=== PATIENT | female | born 1970 | race Caucasian/White ===

== ENCOUNTER 2016-10-25 17:07 | Inpatient (IN) ==
[2016-10-25] MEDS ORDERED: ZOFRAN IV ONE (17:29)
[2016-10-25] MEDS ORDERED: ATIVAN IV ONE (17:29)
[2016-10-25] MEDS ORDERED: DILAUDID IV ONE (17:29)
[2016-10-25 17:54] LABS: INR 1.07; PROTIME 11.3 Seconds (9.2-11.7)
[2016-10-25 18:01] LABS: BASO% 0.4 % (0.0-0.8); EOS# 0.04 X1000 (0.0-0.7); EOS% 0.2 % (0.0-10.0); HEMATOCRIT 27.2 % (37.0-47.0); HEMOGLOBIN 9.1 g/dL (12.0-16.0); IMM GRAN# 2.26 X1000 (0.0-0.04); IMM GRAN% 10.7 % (0.0-0.5); LYMPH# 0.62 X1000 (1.2-3.4); LYMPH% 2.9 % (20.5-51.1); MANUAL DIFF NEEDED? NO; MCH 31.5 PG (27-31); MCHC 33.5 g/dL (33-37); MCV 94.1 FL (81-99); MONO# 1.27 X1000 (0.11-0.59); MPV 10.2 FL (7.4-10.4); NEUT% 79.8 % (42.2-75.2); PLT 112 X1000 (130-400); PTT 40.5 Seconds (22.0-36.0); RBC 2.89 XMIL (4.2-5.4)
[2016-10-25 18:36] LABS: CK INDEX 2.5 (0.0-2.5); CK-MB 14.14 ng/mL (0.0-5.0)
--- NOTE | 2016-10-25 18:37 | Diag Imaging Result Doc PS360 ---
CHEST-2 VIEWS - 10/25/2016 INDICATION: SOB TECHNIQUE: COMPARISON: None FINDINGS: There may be a right sided aortic arch. Heart size and pulmonary vascularity is normal. No focal infiltrates, pneumothorax, or pleural effusion. IMPRESSION: No acute disease. Electronically signed by John Andrade 10/25/2016 6:34 PM
[2016-10-25 18:45] LABS: ALBUMIN 2.9 g/dL (3.5-5.0); CALCIUM 7.3 mg/dL (8.8-10.2); POTASSIUM 5.3 mmol/L (3.5-5.1); TOTAL BILIRUBIN 0.21 mg/dL (0.20-1.00); TOTAL PROTEIN 5.9 g/dL (6.3-8.3)
[2016-10-25] MEDS ORDERED: NS 1,000 ML IV ONE ×2 (18:50→19:11)
[2016-10-25 19:00] LABS: ALLEN TEST YES; BE -25.2 mmoll (-3.0-3.0); BLOOD TYPE ARTERIAL; DRAW SITE R BRACHIAL; METHB 1.2 % (0.0-1.5); O2(CT) 12.7 mL/dL (15.0-23.0); PO2(98.6) 102 mmHg (60-100); SAMPLE BLOOD; SAO2 97.1 % (95.0-100.0); THB 9.4 g/dL (11.5-17.4)
[2016-10-25 19:03] LABS: pH(98.6) 7.01 (7.35-7.45)
[2016-10-25 19:04] LABS: PCO2(98.6) 16 mmHg (35-45)
[2016-10-25] MEDS ORDERED: ZOSYN 3.375 GM/NS 3.375 GM/50 ML IVPB IV ONE (19:10)
[2016-10-25] MEDS ORDERED: VANCOMYCIN 1 GM/NS 1 GM/250 ML IVPB IV ONE (19:10)
--- NOTE | 2016-10-25 19:24 | PROVIDER DOCUMENTATION ---
This chart was entered by Dave Carvajal Scribe, acting as scribe for Genaro Basilio PA. HPI-General Adult - General Chief Complaint: Weakness Stated Complaint: SOB/WEAKNESS Time Seen by Provider: 10/25/16 17:10 Source: patient Allergies/Adverse Reactions: Patient Allergies Allergy/AdvReac Type Severity Reaction Status Date / Time No Known Allergies Allergy Verified 10/25/16 17:30 Home Medications: Home Medication List Medication Instructions Recorded Confirmed Last Taken Type Unobtainable [Home Meds 10/25/16 10/25/16 Unknown History Unobtainable] - History of Present Illness -Gen Adult Nature of Presenting Problems: patient is a 46 y/o F that presents to the ER with back pain that made her short of breath. Symptoms been going on x 2 days. patient reports having colo- rectal cancer with last chemo on tuesday. Denies cough, fever/chills, n/v/d, or chest pain. History of back pain as well Location of Pain/Injury: reports: back Pain Radiation: reports: no radiation Quality of Pain: reports: aching, dull, throbbing Severity: reports: moderate Onset/Duration: reports: gradual, 2 days ago Timing: reports: still present, constant Context/Activities at Onset: reports: none Modifying Factors: worse with: movement Associated Symptoms: reports: anxiety, back/neck pain, shortness of breath. denies: cough, fever/chills, genitourinary problems, loss of appetite, malaise, muscle aches, nausea, vomiting Similar Symptoms Previously?: Yes Recently seen or treated by another doctor?: No Review of Systems - Adult - REVIEW OF SYSTEMS - ADULT Constitutional: denies: chills, fever Eyes: reports: no symptoms reported Ears, Nose, Mouth & Throat: reports: no symptoms reported Cardiovascular: denies: chest pain, orthopnea, palpitations Respiratory: reports: shortness of breath. denies: cough, pleurisy, wheezing Gastrointestinal: denies: abdominal pain, diarrhea, nausea, vomiting Genitourinary: reports: no symptoms reported Musculoskeletal: reports: back pain. denies: joint pain, neck pain Integumentary: reports: no symptoms reported Neurological: reports: no symptoms reported Psychiatric: reports: no symptoms reported Endocrine: reports: no symptoms reported Hematologic/Lymphatic: reports: no symptoms reported Allergic/Immunologic: reports: no symptoms reported All Other Systems: Reviewed and Negative Past History - Adult - PAST MEDICAL HISTORY-ADULT Review of Records: reports: Old Records Reviewed, Nursing Assessment Review, Medications Reviewed Cardiovascular: reports: HTN Gastrointestinal: reports: cancer (rectal) Musculoskeletal: reports: chronic pain (back) Endocrine/Immune: reports: Diabetes - PRIOR SURGERIES/PROCEDURES Surgical/Procedure History: reports: appendectomy, cholecystectomy, hysterectomy , - IMMUNIZATION STATUS Childhood Immunizations: See Nurse Assessment Flu Vaccine: See Nurse Assessment - FAMILY HISTORY Family History: reviewed, not pertinent - SOCIAL HISTORY Smoking: cigarettes, less than 1 pack/day Living Situation: family Physical Exam-General - PHYSICAL EXAM-ADULT Initial Vital Signs Reviewed: Yes - CONSTITUTIONAL General Appearance: alert, mild distress, moderate distress, anxious - EYES Eyes: PERRL/EOMI, pink conjunctivae - HEAD, EARS, NOSE, MOUTH & THROAT HENMT: normocephalic/atraumatic, moist mucous membranes, normal ENT inspection - NECK Neck: full range of motion, normal inspection - RESPIRATORY Respiratory: lungs clear, no respiratory distress, no accessory muscle use, increased rate - CARDIOVASCULAR Cardiovascular: no gallop, no murmur, tachycardia - GASTROINTESTINAL (ABDOMEN) Abdominal Exam: normal bowel sounds, non tender, soft, no organomegaly, no pulsatile mass - MUSCULOSKELETAL Back Exam: no CVA tenderness, no vertebral tenderness Extremity: normal range of motion, normal inspection, no pedal edema - SKIN Integumentary: normal color, warm/dry - NEUROLOGIC Neurologic: weight analyst II-XII nml as tested, no motor/sensory deficits - PSYCHIATRIC Psych/Mental Status: oriented x 3, anxious Progress - PLAN OF CARE/RESULTS Progress/Plan/Lab Results: Vital Signs - 8 hr 10/25/16 17:19 Temperature 97.5 F L Pulse Rate 103 H Respiratory Rate 34 H Blood Pressure 155/111 O2 Sat by Pulse Oximetry 98 Orders Category Date Time Status Saline Loc NOW Care 10/25/16 17:28 Active CHEST-2 VIEWS [RAD] Stat Exams 10/25/16 17:29 Ordered CBC WITH ELECTRONIC DIFF [HEME] Stat Lab 10/25/16 17:29 Uncollected CK PROFILE [SP CHEM] Stat Lab 10/25/16 17:29 Ordered COMPREHENSIVE METABOLIC PANEL [CHEM] Stat Lab 10/25/16 17:29 Uncollected D-DIMER [CHEM] Stat Lab 10/25/16 17:29 Uncollected PROTIME WITH INR [COAG] Stat Lab 10/25/16 17:29 Ordered PTT [COAG] Stat Lab 10/25/16 17:29 Ordered TROPONIN T Stat Lab 10/25/16 17:29 Ordered Hydromorphone [Dilaudid] Med 10/25/16 17:29 Discontinued 1 mg IV NOW ONE Lorazepam [Ativan] Med 10/25/16 17:29 Discontinued 1 mg IV NOW ONE Ondansetron [Zofran] Med 10/25/16 17:29 Discontinued 4 mg IV NOW ONE EKG [EKG] Stat Ther 10/25/16 17:28 Ordered Discussed case c family. She is currently on Nulasta. They state that she has been told her kidneys "were not doing well" but they do not know anything further. Will admit to hospitalist service. Dr. Mayorga reviewed and is in agreement. Result Diagrams: 10/25/16 17:34 10/25/16 17:34 - XRAY 1 XRAY Study: Chest XRAY Interpretation: nad - CONSULTS/PCP/HOSPITALIST Notification #1 *Consult/PCP/Hospitalist*: Dr. Minor Time Discussed: 19:23 Consult Disposition: Admit Departure - Departure Date of Disposition Decision: 10/25/16 Time of Disposition Decision: 19:23 DIAGNOSIS: Shortness of breath, Rectal cancer Sepsis Qualifiers: Sepsis type: sepsis due to unspecified organism Qualified Code(s): A41.9 - Sepsis, unspecified organism Disposition: ADMITTED INPATIENT 09 Certified Medical Emergency: Emergent Condition: Stable - Critical Care Note This patient required my direct & personal management of CC.: Yes Total Time (mins): 31 (Sepsis Protocol) Critical Care Statement: This patient required my direct personal management to treat or rule out processes, the absence of which, could potentiallly result in sudden, clinically significant life or limb threatening deterioration. Attestation - Physician/ LACEY Attestation Patient care was provided by Advanced Practice Provider:: Yes Advanced Practice Provider:: Genaro Basilio Advanced Practice Provider documentation review:: The Mid-level provider documentation, treatment plan and medical decision making was reviewed by the physician who agrees with all treatment and medical decision making by the P. The physician spent face to face time with patient:: Yes Advanced Practice Provider documentation review:: The physician spent face to face time with this patient and agrees with all MLP documentation, treatment, and medical decision making by the MLP. See provider notes for further information. This chart was documented by the indicated scribe, (Dave Carvajal, Candy) and accurately reflects the services I performed and decisions made by , Genaro Basilio PA, as attested by the provider's signature.
--- NOTE | 2016-10-25 20:11 | SEPSIS: TISSUE PERFUSION ASSMT ---
Sepsis: Tissue Perfusion Assco - Physical Exam Assessment Date: 10/25/16 Time Assessment Initialized: 19:00 Vital Signs: Last Vital Signs Temp 97.5 F L 10/25/16 17:19 Pulse 103 H 10/25/16 17:19 Resp 34 H 10/25/16 17:19 BP 155/111 10/25/16 17:19 Pulse Ox 98 10/25/16 17:19 Height 5 ft 1 in Weight 180 lb Lung Sounds:: wheezing Heart Sounds:: Regular Capillary Refill Time: Less Than 2 Seconds Peripheral Pulse Evaluation:: radial (R): 1+, radial (L): 1+, dorsalis-pedis (R) : 1+, dorsalis-pedis (L): 1+, posterior tibialis (R): 1+, posterior tibialis (L) : 1+ Skin Exam:: pale - Impression Impression:: Tissue Perfusion Adequate - Plan Plan:: See Orders
[2016-10-25] MEDS ORDERED: DUONEB (A & A) INH ONE (20:16)
[2016-10-25] MEDS ORDERED: TYLENOL PO PRN (21:40)
[2016-10-25] MEDS ORDERED: VANCOMYCIN IV PER PHARMACY MISC SCH (21:40)
[2016-10-25] MEDS ORDERED: COMPAZINE IV PRN (21:40)
[2016-10-25 22:28] LABS: CALCIUM 6.6 mg/dL (8.8-10.2); POTASSIUM 5.5 mmol/L (3.5-5.1)
[2016-10-25] MEDS: MAXIPIME 0.5 GM in NS 50 ML IV SCH (22:56)
[2016-10-25] MEDS: HEPARIN SUBQ SCH (22:56)
[2016-10-25] MEDS: SODIUM BICARBONATE 8.4% 100 MEQ in D5W 1,000 ML IV SCH (22:57)
[2016-10-25] MEDS: HUMALOG SUBQ SCH (23:08)
[2016-10-25] MEDS: DUONEB (A & A) INH SCH (23:12)
[2016-10-25] MEDS ORDERED: CALCIUM GLUCONATE 1 GM in NS 50 ML IV ONE (23:21)
[2016-10-26 00:57] LABS: UR CREAT RANDOM 59.6 mg/dL (11-20)
[2016-10-26] MEDS ORDERED: VANCOMYCIN IV ONE (01:00)
[2016-10-26] MEDS ORDERED: NS IV ONE (01:00)
[2016-10-26] MEDS ORDERED: DUONEB (A & A) INH ONE (02:42)
--- NOTE | 2016-10-26 03:38 | HISTORY AND PHYSICAL ---
PATIENT OF: 1. Jose Varghese MD 2. Benedict Todd MD REASON FOR ADMISSION: 2-week history of progressive weakness and 2-day history of confusion and a 2-week history of persisent nausea, vomiting, diarrhea. HISTORY OF PRESENT ILLNESS: Ms. Shilpi Lam is a 46-year-old woman with past medical history of type 2 diabetes, hypertension and recently diagnosed 3 months ago with rectal cancer. She has been on a course of chemotherapy and radiation therapy for which both have been stopped 2 weeks ago after completion of the aforementioned regimens. The family reports that for the last 2 weeks she has been having persistent nausea, vomiting, diarrhea. She normally gets nausea, vomiting, diarrhea for two days after she gets chemotherapy, but on this occasion, this has been more severe and more protracted. As a matter of fact, the last 3 days she has been unable to keep anything down. About 4 days after receiving chemotherapy she developed a fever and they called Dr. Todd who called in some levofloxacin. She took this for about a week and she said that she felt a little better. Over the last few days her GI symptoms and overall clinical condition has gotten worse. There has been no recurrent fever by the way, but her sister reports that are her temperature has been between 94 to 95 over the last 2 days. They also report that she has been more confused and drowsy for the last 2 days. There is no reported evidence of blood loss from any orifice. Patient was unable to stand today or even sit up because of the degree of weakness she has experienced. No rash or arthralgia. They also report that about a week ago about the time she had the fever, she also complained of some dysuria while she was on Levaquin, but this was not addressed per the family. No reported abdominal pain. No cardiorespiratory complaints per the patient and family. Patient cannot give me a very detailed history because she is severely lethargic and drowsy because she received some Ativan and Dilaudid by time I saw her. REVIEW OF SYSTEMS: Very limited due to patient's cognitive status at this time, but positive findings are noted above. ALLERGIES: None. MEDICATIONS: No list available for review although the family tells me she is on some diabetic pills and she is also taking a blood pressure pill with a diuretic which has been stopped for close to about a week. FAMILY HISTORY: Heart disease, cervical cancer in mom, type 2 diabetes. SURGICAL HISTORY: Hysterectomy and cholecystectomy. SOCIAL HISTORY: Smokes 1 pack a day. No history of drug use. Lives with her mother and daughter. DIAGNOSTIC DATA/LAB WORK: Chest film so far shows no increased vascular markings or infiltrate. Urinalysis is pending. White count 21,000, hemoglobin and hematocrit 9 and 27. Platelets 112,000 with 80% neutrophils. Sodium 120, potassium is 5.3, bicarb is just 3, anion gap is 43 with a BUN of 59, creatinine is 7.1, glucose 113, CK 556, troponin 0.022. Albumin 2.9. Lactate 11.8, PT is 11, INR is 1. PTT is 40. D-dimer 2.1. PH 7. PH 16, PO2 is 102. This is on room air. EKG showed low voltage. EKG with a lot of artifact, sinus tachycardia was noted. Left axis deviation noted. No acute ischemic or myocardial injury pattern noted. EXAMINATION: Vital signs: Blood pressure was 155/110 when I saw her, it has come down to 114/70, heart rate 103, respirations 34 temperature is 97.5, O2 98% on room air. General: She is a middle-aged obese woman who is in mild respiratory distress. She is extremely lethargic, but easily arousable. Barely able to form complete sentences. She is oriented to person and place, but not to time. HEENT: Head is normocephalic, atraumatic. Eyes NATHAN, EOMI. She is anicteric, but severely pale. ENT and oropharyngeal examination grossly normal except she has dry oral mucosa. No exudates or erythema noted. Neck: Supple. No JVD or carotid bruit. No thyromegaly. Surprisingly, patient has good skin turgor. However, this is difficult to assess due to the fact she is obese. No thyromegaly. No lymphadenopathy. No JVD. Chest: She has expiratory wheezes in the right upper lung and she is mildly diminished in both lung finley. Cardiovascular: First and second heart sounds heard. No gallops, murmurs or rubs. Rhythm is regular. Abdomen: Slightly protuberant, soft, with no mass or organomegaly appreciated. Bowel sounds are normal. Rectal exam deferred. No masses or organomegaly appreciated. Extremities: Patient has symmetrical pulses in all extremities. +1 and adequate. Good capillary refill noted. She has trace edema in her lower extremities. As a matter of fact, the family reports that her lower extremity edema has significantly improved over the last 1 week. No clubbing or peripheral cyanosis. Neurological: No asterixis or focal deficits appreciated. Skin: Intact. No breakdown lesions. Musculoskeletal: Exam is grossly normal. ASSESSMENT: 1. Sepsis? Probably urinary in nature. Cannot rule out intra-abdominal etiology. For now, we will treat patient with vancomycin and Maxipime for brought spectrum coverage. I have ordered a CT scan due to the patient's history of rectal cancer to rule out any intra-abdominal infectious process. If there is deemed to be anything suspicious we will add on Flagyl. Stool cultures have been ordered to rule out C. difficile. Urine cultures and urinalysis pending as of this time. Blood cultures have been drawn. Etiology at this time could either be GI versus urinary for the time being. We will continue IV fluids support, preferably under this condition with a bicarbonate drip due to the fact the patient has severe metabolic acidosis, probably secondary to uremia and lactic acidosis. 2. Metabolic acidosis secondary to uremia and lactate acidosis. The latter probably due to severe decreased intravascular volume from vomiting and diarrhea. Continue with IV fluid resuscitation for which patient is going to receive 2 L of normal saline before we switch over to bicarb. 3. Acute kidney injury secondary to decreased intravascular volume from persistent GI losses. It is also possible this has been compounded with some of the home medications patient may have been taking, which at this point in time, I am not able to review because they have not been reconciled by nursing staff. If there are any nephrotoxic medications, these need to be discontinued. Urine indices have been ordered to confirm my suspicion of primarily prerenal etiology which has probably compounded into acute tubular necrosis. Urine catheterization will be started and input and output will be monitored and fluid adjusted accordingly. We will also order an echocardiogram due to the family history of the patient having peripheral edema to rule out underlying CHF, which patient may be at risk of having due to her comorbid factors of diabetes and hypertension. Renal ultrasound has also been ordered. 4. Hyponatremia. Likely hypotonic, hypovolemic in etiology from GI losses. However, we cannot also rule out SIADH in this patient as a contributing factor. The patient has a history of prior hyponatremia which may be related to chemotherapy if patient was getting a circle-based chemotherapy. We will follow BMP closely to ensure we correct this slowly, although I do think in this patient's case that I will not be too concerned about the patient having osmotic demyelination syndrome since I suspect there is an acute component to her hyponatremia. TSH has also been ordered and urine osmolarity need to be followed. 5. Type 2 diabetes, sliding scale has been started in the interim. 6. Severe dehydration from GI losses. See above for plan. 7. Hypertension. We will not manage this for now, but will just treat only as needed with nonnephrotoxic antihypertensives if needed. Total critical care time in this patient was estimated to be around 36 minutes and may dictate further if pending CT scan reveals something ominous and acute. cc: MD Jose Yarbrough MD [place] P. Akinsoto, MD
[2016-10-26] MEDS: HUMALOG SUBQ SCH ×4 (03:44→19:52)
[2016-10-26 04:24] LABS: ALLEN TEST YES; BE -19.5 mmoll (-3.0-3.0); BLOOD TYPE ARTERIAL; DRAW SITE R RADIAL; METHB 0.9 % (0.0-1.5); O2(CT) 10.4 mL/dL (15.0-23.0); PCO2(98.6) 20 mmHg (35-45); PO2(98.6) 108 mmHg (60-100); SAMPLE BLOOD; SAO2 97.9 % (95.0-100.0); THB 7.5 g/dL (11.5-17.4)
[2016-10-26 04:26] LABS: MODALITY CANNULA; pH(98.6) 7.17 (7.35-7.45)
[2016-10-26 04:48] LABS: MODALITY ROOM AIR
[2016-10-26 06:14] LABS: BASO% 0.4 % (0.0-0.8); HEMATOCRIT 21.8 % (37.0-47.0); HEMOGLOBIN 7.3 g/dL (12.0-16.0); IMM GRAN# 1.51 X1000 (0.0-0.04); LYMPH# 0.31 X1000 (1.2-3.4); LYMPH% 2.1 % (20.5-51.1); MANUAL DIFF NEEDED? YES; MCH 31.7 PG (27-31); MCHC 33.5 g/dL (33-37); MCV 94.8 FL (81-99); MONO# 0.66 X1000 (0.11-0.59); MONO% 4.4 % (1.7-9.3); MPV 10.4 FL (7.4-10.4); NEUT% 83.1 % (42.2-75.2); PLT 81 X1000 (130-400)
[2016-10-26 06:31] LABS: POTASSIUM 4.7 mmol/L (3.5-5.1)
[2016-10-26 06:32] LABS: ALBUMIN 2.4 g/dL (3.5-5.0); TOTAL BILIRUBIN 0.26 mg/dL (0.20-1.00); TOTAL PROTEIN 4.8 g/dL (6.3-8.3)
[2016-10-26 06:39] LABS: CALCIUM 6.6 mg/dL (8.8-10.2)
[2016-10-26 07:04] LABS: LYMPHS 2 % (21-51); MONO 4 % (1-9)
[2016-10-26] MEDS: DUONEB (A & A) INH SCH ×3 (07:26→23:01)
--- NOTE | 2016-10-26 07:28 | Diag Imaging Result Doc PS360 ---
EXAM: ABDOMEN/PELVIS W/O CONTRAST INDICATION: N,V,D in pt with rectal cancer TECHNIQUE: COMPARISON: None. FINDINGS: There is subsegmental atelectasis and/or infiltrate at the lung bases. There are calcified granulomata in the spleen. There has been a previous cholecystectomy. The liver is grossly unremarkable. The adrenal glands, pancreas, and kidneys are unremarkable. The urinary bladder appears normal. There has been a previous hysterectomy. There is a small amount of nonspecific free fluid between bowel loops and layering in the pelvis. There are several fluid-filled loops of small bowel with only minimal distention. This is most likely due to ileus. There is nothing that is specific for obstruction. There is fatty infiltration of the colonic wall. This can be seen in patients with high BMI and sometimes it can be associated with chronic inflammation. No active colonic inflammatory changes are appreciated on the current study. The remainder of the GI tract is essentially unremarkable by unenhanced CT. No free abdominal gas is appreciated. The bony structures are intact. There is nothing that would indicate bony metastatic disease. IMPRESSION: 1.Nonspecific fluid-filled loops of small bowel with only minimal distention. 2.Small amount of nonspecific free fluid layering in the pelvis. 3.Subsegmental atelectasis and/or infiltrate at the lung bases. 4.Other incidental/nonacute findings detailed above. Electronically signed by Feliz Lowe 10/26/2016 7:26 AM
[2016-10-26] MEDS ORDERED: CALCIUM GLUCONATE 1 GM in NS 50 ML IV ONE (08:00)
[2016-10-26] MEDS: HEPARIN SUBQ SCH ×2 (08:07→20:38)
[2016-10-26] MEDS: SODIUM BICARBONATE 8.4% 100 MEQ in D5W 1,000 ML IV SCH (08:07)
[2016-10-26] MEDS ORDERED: CALTRATE 600 PO SCH (09:00)
[2016-10-26] MEDS ORDERED: TUMS EXTRA STRENGTH PO SCH (09:00)
[2016-10-26] MEDS: MAXIPIME 0.5 GM in NS 50 ML IV SCH ×2 (10:29→21:39)
--- NOTE | 2016-10-26 13:15 | ECHO REPORT ---
ORDER DATE: 10/26/2016 INTERPRETING PHYSICIAN: Dr. Tahir Cooper ECHOCARDIOGRAPHIC MEASUREMENTS: Interventricular septum: 1.0 cm. Left ventricular posterior wall: 1.3 cm. Diastolic diameter: 4.4 cm. Left atrium: 3.8 cm. Aortic root: 2.7 cm. SUMMARY OF THE 2-DIMENSIONAL IMAGIN. Normal left ventricular cavity size. Estimated ejection fraction of 70% hyperdynamic circulation. 2. Aortic valve leaflets are trileaflet. Mitral valve was normal. Tricuspid valve was normal. Pulmonic valve was normal. 3. There is trace mitral regurgitation. Mild tricuspid regurgitation. Peak velocity across the tricuspid valve was 2.5 m/sec. Pulmonary artery systolic pressure of 35 mmHg. 4. Peak velocity across the aortic valve less than 2 m/sec. There is no aortic stenosis or regurgitation. There is increased velocity in the left ventricular outflow tract secondary to hyperdynamic circulation. Velocity up to 2.7 m/sec. 5. There is no pericardial effusion or obvious intracardiac mass or thrombus seen. cc: MD Jack Isabel MD
[2016-10-26 13:54] LABS: ALLEN TEST YES; BE -10.9 mmoll (-3.0-3.0); BLOOD TYPE ARTERIAL; DRAW SITE R RADIAL; METHB 1.2 % (0.0-1.5); O2(CT) 10.1 mL/dL (15.0-23.0); PCO2(98.6) 22 mmHg (35-45); PO2(98.6) 104 mmHg (60-100); SAMPLE BLOOD; SAO2 98.3 % (95.0-100.0); THB 7.3 g/dL (11.5-17.4); pH(98.6) 7.38 (7.35-7.45)
[2016-10-26 13:55] LABS: MODALITY CANNULA
[2016-10-26] MEDS ORDERED: NS 250 ML ONE (13:56)
--- NOTE | 2016-10-26 14:10 | CONSULTATION ---
DATE OF CONSULTATION: 10/26/2016 NEPHROLOGY CONSULTATION: REASON FOR CONSULTATION: Acute kidney injury. HISTORY OF PRESENT ILLNESS: Ms. Lam is a 46-year-old, white female who has a recent diagnosis of rectal cancer and has been treated with chemotherapy and has just finished a course of radiation therapy. She has had anorexia and nausea associated with the chemotherapy but it has been 1 or 2 weeks since her last treatment. She had her last radiation treatment on Tuesday. She has had ongoing nausea, vomiting and diarrhea. She has been able to keep down her routine medications however. She has had no fever in this interval. She did have abnormal labs at her last visit with Dr. Todd early last week and she was given IV fluids in his office. She ultimately developed confusion and decreased level of consciousness so she was brought to the emergency room overnight. Her evaluation in the emergency room found her blood pressure marginally low at 99/61 with resting tachycardia but no fever. Her initial laboratory evaluation found marked metabolic acidosis and acute kidney injury. She was admitted to the intensive care unit with a diagnosis of sepsis and treated with empiric broad-spectrum antibiotics as well as volume resuscitation. There was some concern that she may need ventilator support because of her acidosis. However her pH improved modestly and this intervention was for foregone. She has been receiving sodium bicarbonate drip since admission. PAST MEDICAL HISTORY: As above. She also has diabetes, hypertension, osteoarthritis. HOME MEDICATIONS: P.o. glitazone, levocetirizine, levofloxacin, metformin, meloxicam, potassium, clonazepam, simvastatin, Robaxin, ondansetron, metoclopramide, docusate, enalapril, hydrochlorothiazide. ALLERGIES: None. SOCIAL HISTORY: She is attended by her daughter, lives with her father and grandfather and her daughter. No one else has been sick at home. She has ongoing tobacco use. FAMILY HISTORY: Positive for cancer and diabetes. PHYSICAL EXAMINATION: Vital Signs: Blood pressure 99/47, heart rate 106, respiration 21, afebrile. General: She is a middle-aged woman, chronically ill, in no acute distress. Skin: Warm and dry. Conjunctivae are pink. Pupils are equal. Oropharynx is dry. Tongue is somewhat coated. Dentition normal. Neck: Supple. Trachea is midline. Neck veins are not visible. Heart: Regular, tachycardic, with a gallop. Lungs: Have equal breath sounds. No crackles or wheezes. Abdomen: Soft, mildly tender diffusely. Bowel sounds present. No guarding or rebound. No organomegaly or masses. Extremities: Have trace edema. No clubbing or cyanosis. Pulses are difficult to palpate in the feet. Neurologic Exam: Grossly nonfocal. IMPRESSION: 1. Acute kidney injury. Presumably intravascular volume depletion associated with TORI inhibitor and diuretic use. Certainly she could have acute tubular injury from hypotension. Her sepsis. Her urine sodium was elevated at 64 which is inconclusive with regard to a prerenal state. She does have severe metabolic acidosis with high anion gap and high lactate levels. I expect that this is from metformin use in the context of acute kidney injury. This medication has been discontinued. Her lactate level seems to be falling and she is on a bicarbonate drip. I will recheck chemistries and ABG at 2 p.m. today to make a decision about her ongoing IV fluids. Otherwise continue her bicarbonate drip as ordered. 2. Imaging did not disclose evidence of obstruction. 3. Electrolytes. She has moderate hypocalcemia. She has received IV calcium. We will observe. Related to her metabolic acidosis. cc: Kvng Grande MD
[2016-10-26 14:52] LABS: AGAP 33; BUN 71 mg/dL (8-22); CHLORIDE 80 mmol/L (98-107); COSMO 272; POTASSIUM 4.4 mmol/L (3.5-5.1); SODIUM 125 mmol/L (136-145); TCO2 12 mmol/L (25-35)
[2016-10-26 14:53] LABS: ALBUMIN 2.6 g/dL (3.5-5.0)
[2016-10-26 14:55] LABS: CALCIUM 6.3 mg/dL (8.8-10.2)
[2016-10-26] MEDS ORDERED: CALCIUM GLUCONATE 2 GM in NS 100 ML IV ONE (16:00)
--- NOTE | 2016-10-26 16:13 | Diag Imaging Result Doc PS360 ---
EXAM: ABDOMEN FLAT/UPRIGHT HISTORY: possible ileus TECHNIQUE: Two views, portable COMPARISON: None. FINDINGS: No free air beneath the diaphragm. There are surgical clips in the right upper quadrant consistent with cholecystectomy. There is very little air within the bowel loops. Nodular overly distended. No organomegaly. Mild scoliosis. IMPRESSION: Negative exam. Electronically signed by Barrett Sibley 10/26/2016 4:11 PM
--- NOTE | 2016-10-26 20:05 | PROGRESS NOTE ---
DATE: 10/26/2016 PATIENT OF: Jose Varghese MD and Benedict Todd MD. SUBJECTIVE: A 2-week history of progressive weakness, 2-day history of confusion, 2-day persistent nausea and vomiting. This is a 46-year-old with past medical history of diabetes mellitus type 2, hypertension, being diagnosed 3 months ago with rectal cancer. She had been on a course of chemotherapy and radiation treatment which was stopped 2 weeks ago after completion of aforementioned regimens. Family reports that for 2 weeks has had persistent nausea, vomiting, diarrhea, steadily getting worse. She was admitted with: 1) Sepsis, probably urinary tract infection and given IV fluids, antibiotics, seems to be improving. 2) Metabolic acidosis secondary to uremia and lactic acidosis. 3) Acute kidney injury secondary to decreased intravascular volume, persistent GI losses. 4) Hyponatremia. Hypovolemic. 5) Diabetes mellitus type 2. 6) Severe dehydration. 7) Hypertension. LABORATORY: White count came down from 20,000 to 1500. Hematocrit 27 to 21, platelet count 81,000. Sodium stayed stable 125. Potassium unremarkable. BUN 65 to 71. Creatinine 6.7 to 6.9. Calcium 6.6 to 6.3. Albumin was 2.6. ASSESSMENT AND PLAN: Review of orders, received some calcium gluconate, is on vancomycin, Cefepime. Dr. Grande is following as well. Dr. Cooper checked echocardiogram. Dr. Grande feels acute kidney injury, presumably intravascular volume depletion secondary to TORI inhibitor and diuretic use. She could have acute tubular necrosis from hypotension, sepsis. Urine sodium was elevated at 64 which is inconclusive. In regard to prerenal state, she does have severe metabolic acidosis and anion gap, lactate levels. Suspect this is from metformin use in the state of acute kidney injury. So continue present fluids and supportive measures. Follow electrolytes. Supplement some potassium. Continue present antibiotics. cc: Ernesto Griffin MD
[2016-10-27] MEDS: HUMALOG SUBQ SCH ×4 (02:01→22:18)
[2016-10-27] MEDS ORDERED: VASELINE TOP ONE (04:01)
[2016-10-27 05:56] LABS: HEMATOCRIT 24.7 % (37.0-47.0); HEMOGLOBIN 8.7 g/dL (12.0-16.0); MCH 31.4 PG (27-31); MCHC 35.2 g/dL (33-37); MCV 89.2 FL (81-99); RBC 2.77 XMIL (4.2-5.4)
[2016-10-27 06:24] LABS: ALBUMIN 2.5 g/dL (3.5-5.0); CALCIUM 6.5 mg/dL (8.8-10.2); POTASSIUM 4.7 mmol/L (3.5-5.1)
[2016-10-27] MEDS ORDERED: CALCIUM GLUCONATE 1 GM in NS 50 ML IV ONE (06:37)
[2016-10-27] MEDS: DUONEB (A & A) INH SCH ×3 (07:24→23:42)
[2016-10-27] MEDS: NS 1,000 ML IV SCH ×2 (08:16→22:19)
[2016-10-27] MEDS: HEPARIN SUBQ SCH ×2 (08:16→20:27)
--- NOTE | 2016-10-27 08:24 | PROGRESS NOTE ---
DATE: 10/27/2016 SUBJECTIVE: She is awake. She is lethargic. States she feels better. PHYSICAL EXAMINATION: Vital Signs: Temperature 98.6 degrees, pulse 100, respirations 24, and blood pressure 96/57. Lungs: Are clear in all lung finley. Cardiovascular Examination: Regular rhythm and rate without murmur or S3. Abdomen: Soft. Skin: Is warm and dry. Is and Os: Urine output is a 570 L. DIAGNOSTIC DATA: Abdominal x-ray done yesterday was negative. No free air. ASSESSMENT AND PLAN: 1. Dr. Grande consulted. Acute kidney injury, presumably intravascular volume depletion associated with TORI inhibitor and diuretic use. Possible acute atubular necrosis. Lab today, creatinine about the same at 6.8, BUN 81. 2. Hypocalcemia, aware, and hyperphosphatemia. 3. Note, echocardiogram with Doppler was done on 10/26/2016. Normal left ventricular size, ejection fraction of 70%, hyperdynamic, no valvular dysfunction appreciated. Pulmonary artery pressures around 35 mmHg. Continue present measures. Hopefully, renal function will improve with volume. She ought to be able to handle the volume too with good left ventricular function. She is on cefepime 500 mg every 12 hours intravenous and on vancomycin. cc: Ernesto Griffin MD
--- NOTE | 2016-10-27 09:16 | PROGRESS NOTE ---
DATE: 10/27/2016 ADDENDUM: I am going to give her some fluid. Renal function, she should be able to handle some fluid. Normal left ventricular function. Hopefully will help with renal function. I am going to stop her vancomycin as cultures are not growing anything. Will keep her on cefepime. Note, the blood sugars look basically normal. Continue to follow. cc: Ernesto Griffin MD
[2016-10-27] MEDS: MAXIPIME 0.5 GM in NS 50 ML IV SCH ×2 (10:09→22:21)
[2016-10-27] MEDS: NORCO-5 PO PRN ×2 (12:45→20:27)
--- NOTE | 2016-10-27 13:18 | PROGRESS NOTE ---
DATE: 10/27/2016 SUBJECTIVE: She is feeling better today. She is able to articulate whereas yesterday she deferred to the family. No nausea, vomiting, shortness of breath. No chills or fevers. OBJECTIVE: Vital Signs: Blood pressure 90/49, heart rate 105, respirations 24, afebrile. Intake 2.4 L. Output 330 mL. PHYSICAL EXAMINATION: No acute distress.Skin: Warm and dry. HEENT: Conjunctivae are pink. Pupils are equal. Neck: Neck veins are 6 cm. Trachea is midline. No hepatojugular reflux. Heart: Regular without gallops or murmurs. Lungs: Have equal breath sounds. No crackles. Abdomen: Soft, nontender. Bowel sounds present. Extremities: Have no edema, clubbing, or cyanosis. LABORATORY DATA: Sodium 122, potassium 4.7, chloride 83, bicarbonate 16, BUN 81, creatinine 6.8, calcium 6.5. Phosphorus 7.9. IMPRESSION: 1. Acute kidney injury. Her BUN and creatinine have changed very little but her urine output remains low. Physical exam does not demonstrate volume overload. Her IV fluids have been adjusted to normal saline at 75 mL an hour. Continue current. 2. Acidosis. Anion gap. Continues to improve. Observe. 3. Hyponatremia. Very little change since admission. Continue normal saline. 4. Acute kidney injury. No dialysis today. cc: Kvng Grande MD
[2016-10-27] MEDS: ZOFRAN IV PRN (17:54)
--- NOTE | 2016-10-27 22:40 | CONSULTATION ---
DATE OF CONSULTATION: 10/26/2016 ADMITTING PHYSICIAN: Jack Minor MD. REQUESTING PHYSICIAN: Jack Minor MD. We appreciate this consult. CHIEF COMPLAINT: History of anal squamous cell carcinoma. HISTORY OF PRESENT ILLNESS: Ms. 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 Additionally, the patient has been undergoing radiation therapy. Both were completed approximately 2 weeks prior to admission. The family reports that the patient had been persistently weaker, with nausea and vomiting and diarrhea. The patient's family reports that 3 days prior to admission she had been unable to keep anything down by mouth at all. They also reported a fever approximately 1 week prior for which the patient was placed on levofloxacin by Dr. Todd. The patient took the full course of antibiotics and apparently improved, but her GI symptoms continued to worsen. The patient presented to [facility] Emergency Department secondary to protracted nausea, vomiting and diarrhea with profound weakness. Upon presentation to [facility], the patient was found to be significantly dehydrated with acute kidney insufficiency. She is additionally questionably septic and has been placed on empiric antibiotics. PAST MEDICAL HISTORY: 1. Hypertension. 2. Diabetes mellitus type 2. 3. Rectal cancer. PAST SURGICAL HISTORY: 1. Hysterectomy. 2. Cholecystectomy. FAMILY HISTORY: Significant for cervical cancer in the patient's mother. SOCIAL HISTORY: The patient smokes 1 pack cigarettes a day. She does not use illicit drugs or alcohol. MEDICATIONS ON ADMISSION: Medication reconciliation is currently pending. ALLERGIES: The patient has no known drug allergies. REVIEW OF SYSTEMS: A 14 point review of systems was obtained and is negative except as mentioned in HPI. PHYSICAL EXAMINATION: General: Ms. Lam is a 46-year-old female, well developed, well nourished, lying supine in bed, quite weak, but in no immediate distress. Vital Signs: Temperature 96.8 degrees, blood pressure 99/47, heart rate 106, respirations 21, O2 saturation is 100% on 3 L nasal cannula O2. HEENT: Normocephalic, atraumatic. Mucous membranes are somewhat pale and dry. Sclerae anicteric. Extraocular movements intact. Neck: Supple. Lungs: Clear to auscultation bilaterally. Chest expansion is equal bilaterally. CARDIOVASCULAR: S1, S2 is heard without murmur, rub or gallop. Abdomen: Soft, nondistended, nontender. Bowel sounds positive all quadrants. No rebound or guarding noted. Extremities: Without clubbing, cyanosis, or edema. Dermatologic: No rashes, bruises or lesions. Neurologic: The patient is awake, but somewhat somnolent. She is oriented x3 and has no focal deficit at this time. LABORATORY DATA: Hemoglobin 7.3, hematocrit 21.8, white blood cell count is 15.03, platelets 81,000. ANC is 12.49. Sodium 125, potassium 4.7, chloride 80, CO2 is 8, BUN 65, creatinine 6.7, glucose 196, calcium 6.6, vitamin D is 5.5. IMAGING STUDIES: CT of the abdomen and pelvis revealed atelectasis or infiltrate in both lung bases with minimal fluid-filled loops of small bowel and minimal free fluid layering in pelvis. ASSESSMENT AND PLAN: 1. Anal squamous cell carcinoma status post 5-FU and mitomycin with radiation. Follow-up and restaging have been scheduled. We will continue to follow. 2. Nausea and vomiting. Considerably improved on antiemetics. 3. Sepsis. Blood cultures are currently pending. The patient is on empiric antibiotics at this time. 4. Acute kidney insufficiency and severe dehydration. The patient is currently on IV fluid hydration with improvement. 5. Anemia. Hemoglobin is 7.3. We will transfuse 2 units packed red blood cells. 6. We will follow along with you and make further recommendations pending outcomes. The above reflects the history, examination, assessment and plan of Dr. Todd. Dictated by EMERSON Osuna for Benedict Todd MD cc: EMERSON Osuna MD
[2016-10-28] MEDS: NORCO-5 PO PRN ×2 (01:30→08:01)
[2016-10-28] MEDS: HUMALOG SUBQ SCH ×4 (01:41→21:05)
[2016-10-28 05:05] LABS: HEMATOCRIT 22.9 % (37.0-47.0); HEMOGLOBIN 8.1 g/dL (12.0-16.0); MCH 31.5 PG (27-31); MCHC 35.4 g/dL (33-37); MCV 89.1 FL (81-99); MPV 10.8 FL (7.4-10.4); RBC 2.57 XMIL (4.2-5.4)
[2016-10-28 05:43] LABS: ALBUMIN 2.6 g/dL (3.5-5.0); CALCIUM 6.8 mg/dL (8.8-10.2); POTASSIUM 4.3 mmol/L (3.5-5.1)
[2016-10-28] MEDS: DUONEB (A & A) INH SCH ×3 (07:23→23:39)
--- NOTE | 2016-10-28 07:38 | PROGRESS NOTE ---
DATE: 10/28/2016 SUBJECTIVE: She is awake. She said she slept through the night. Feels good. OBJECTIVE: Vital Signs: Temp 97.6 degrees, pulse 90, respirations 20, blood pressure 96/64. Lungs: Clear anterolateral. Cardiovascular: Regular rhythm and rate without murmur or S3. Abdomen: Soft. Skin: Warm and dry. O2 saturation is 97%. Urine output: Over a liter, so it has picked up. LABORATORY DATA: White count 7070, hematocrit 22, platelet count is 54,000, so we have to watch the platelets. Sodium 129, potassium 4.3, chloride 89, BUN 91, creatinine 6.8, calcium 6.5. ASSESSMENT AND PLAN: 1. Anal squamous cell carcinoma, status post 5-FU. Minimize with radiation. Followup on restaging have been scheduled. 2. Nausea and vomiting, which is improved with antiemetics. 3. Sepsis. Patient on empiric antibiotics. 4. Acute renal insufficiency, severe dehydration. Suspect acute tubular necrosis. Her urine output has improved, which is encouraging. Creatinine has not gone up at all. 5. Anemia. Hemoglobin 7.3. They gave her 2 units of packed red blood cells. Review of her lab, watching platelet count, it has dipped down a little bit. We will watch that. Review of orders. She is on cefepime 500 mg intravenously every 12 hours. cc: Ernesto Griffin MD
[2016-10-28] MEDS: HEPARIN SUBQ SCH ×2 (08:01→21:04)
[2016-10-28] MEDS: MAXIPIME 0.5 GM in NS 50 ML IV SCH ×2 (09:48→21:05)
--- NOTE | 2016-10-28 10:34 | PROGRESS NOTE ---
DATE: 10/28/2016 SUBJECTIVE: She states she is feeling well. She is sitting up at 30 degrees. No shortness of breath on room air. OBJECTIVE: Vital Signs: Blood pressure 114/66, heart rate 103, respiration 22, afebrile. Intake 2.5 L. Output 700 mL. PHYSICAL EXAMINATION: No acute distress. Skin is warm and dry. Conjunctivae are pink. Oropharynx is dry. Neck veins are 6-8 cm with hepatojugular reflux. Heart is regular without gallops or murmurs. Lungs have coarse breath sounds but no crackles or wheezes. Abdomen soft, nontender, bowel sounds present. Extremities have 1+ edema. No clubbing or cyanosis. LABORATORY DATA: Sodium 129, potassium 4.3, chloride 89, bicarbonate 18. BUN 91, creatinine 6.5. Hemoglobin 8.1. IMPRESSION: 1. Acute kidney injury. BUN continues to rise. Creatinine is slowly decreasing. Urine output is somewhat better. She has no absolute indications for dialysis. 2. Electrolytes are acceptable. She remains hypocalcemic but moderately so. 3. Acid-base. Anion gap is slowly improving day by day. No changes. She is off of her bicarbonate drip. cc: Kvng Grande MD
[2016-10-28] MEDS: NS 1,000 ML IV SCH (11:12)
[2016-10-29] MEDS: NORCO-5 PO PRN ×3 (00:19→14:39)
[2016-10-29] MEDS: NS 1,000 ML IV SCH ×2 (00:30→14:38)
[2016-10-29] MEDS: HUMALOG SUBQ SCH ×4 (01:28→21:43)
[2016-10-29 05:27] LABS: HEMOGLOBIN 8.1 g/dL (12.0-16.0); MCH 31.9 PG (27-31); MCHC 35.2 g/dL (33-37); MCV 90.6 FL (81-99); MPV 11.2 FL (7.4-10.4); RBC 2.54 XMIL (4.2-5.4)
[2016-10-29 05:45] LABS: ALBUMIN 2.5 g/dL (3.5-5.0); CALCIUM 8.2 mg/dL (8.8-10.2); POTASSIUM 3.7 mmol/L (3.5-5.1)
[2016-10-29] MEDS: DUONEB (A & A) INH SCH ×3 (07:52→23:06)
--- NOTE | 2016-10-29 08:21 | PROGRESS NOTE ---
DATE: 10/29/2016 SUBJECTIVE: Ms. Lam is feeling much better, much stronger, breathing comfortably. OBJECTIVE: Vital Signs: Temp 98.0 degrees, pulse 97, respirations 22, blood pressure 100/71. HEENT: Pupils are equal and round. CVP less than 6 cm. Lungs: Clear in all lung finley. Cardiovascular exam: Regular rhythm and rate without murmur or S3. Abdomen: Soft. Skin: Warm and dry. Weight: Weight 188 pounds. : Urine output was 3000 mL. LABS: White count 5230, hematocrit 23, hemoglobin 8.1, MCV was 90, platelet count 51,000. Chemistry: Sodium 131, potassium 3.7, chloride 94, BUN 85, creatinine 4.9. Creatinine has improved quite a bit. Calcium up to 8.2. Albumin 2.5. ASSESSMENT AND PLAN: 1. Acute kidney injury. Acute tubular necrosis, improving. Encouraging urine output has improved. Creatinine has dropped. I think she can move to the floor. 2. Electrolytes acceptable. Acid-base status looks good. 3. Sepsis, resolved. We will let her move to the floor. Begin physical therapy. cc: Ernesto Griffin MD
[2016-10-29] MEDS: HEPARIN SUBQ SCH ×2 (08:23→21:42)
--- NOTE | 2016-10-29 09:15 | PROGRESS NOTE ---
DATE: 10/29/2016 SUBJECTIVE: She is feeling well. No nausea, vomiting, shortness of breath, chest discomfort. Etc. OBJECTIVE: Vital Signs: Blood pressure 108/75, heart rate 98, respirations 26, afebrile. Intake 2.8 L. Output 1.7 L. PHYSICAL EXAMINATION: No acute distress. Skin is warm and dry. Conjunctivae are pink. Pupils are equal. Neck veins are about 6 cm. Trachea is midline. Heart is regular without gallops or murmurs. Lungs have equal breath sounds. No crackles or wheezes. Abdomen is soft, nontender. Bowel sounds present. Extremities: Have 1+ edema. No clubbing or cyanosis. IMPRESSION: 1. Acute kidney injury. Improvement in urine output and fall in BUN and creatinine. No intervention required. 2. Metabolic acidosis. Anion gap continues to improve. No intervention required. 3. Hypocalcemia, resolved. cc: Kvng Grande MD
[2016-10-29] MEDS: MAXIPIME 0.5 GM in NS 50 ML IV SCH ×2 (09:30→22:35)
[2016-10-29] MEDS ORDERED: PRILOSEC PO ONE (21:27)
[2016-10-30] MEDS ORDERED: VANCOMYCIN 1 GM/NS 1 GM/250 ML IVPB IV SCH (02:00)
[2016-10-30] MEDS: HUMALOG SUBQ SCH ×4 (02:32→21:24)
[2016-10-30] MEDS: NS 1,000 ML IV SCH ×2 (04:36→22:00)
[2016-10-30 05:55] LABS: HEMATOCRIT 23.2 % (37.0-47.0); HEMOGLOBIN 8.1 g/dL (12.0-16.0); MCH 31.6 PG (27-31); MCHC 34.9 g/dL (33-37); MCV 90.6 FL (81-99); RBC 2.56 XMIL (4.2-5.4)
[2016-10-30 06:07] LABS: ALBUMIN 2.6 g/dL (3.5-5.0); POTASSIUM 3.9 mmol/L (3.5-5.1)
[2016-10-30] MEDS: DUONEB (A & A) INH SCH ×3 (07:57→23:15)
[2016-10-30] MEDS: HEPARIN SUBQ SCH ×2 (08:52→21:18)
[2016-10-30] MEDS: NORCO-5 PO PRN ×3 (08:52→21:23)
--- NOTE | 2016-10-30 11:14 | PROGRESS NOTE ---
DATE: 10/30/2016 SUBJECTIVE: She says she feels better today. She said she did have some incontinence of urine yesterday, pee peed all over herself. She is anxious to have a shower this morning. Feels a lot better and stronger. OBJECTIVE: Remains afebrile. Temperature 98.7 degrees, pulse 97, respirations 16, blood pressure 124/77. Lungs are clear in all lung finley. Cardiovascular: Regular rhythm and rate without murmur or S3. Abdomen is soft. Skin is warm and dry. Urine output 3600. White count 4330, hematocrit 23, platelet count 52,000. Sodium 133, potassium 3.9, chloride 96. BUN 58, creatinine 2.6. Creatinine has come down nicely from 4.9 yesterday. Blood sugars 128, 184, 1O2. ASSESSMENT AND PLAN: 1. Acute kidney injury which is acute tubular necrosis improving and she is doing very well with good urine output. Creatinine is down to 0.9. 2. Electrolytes look good. Acid-base status looks good. 3. She has rectal cancer. She was diagnosed about 3 months ago. She has had a course of chemotherapy and radiation treatment and both of them stopped 2 weeks ago. She had completed the regimen. She presented with persistent nausea, vomiting, diarrhea, and presented with sepsis, not sure of the source of underlying infection. Marked improvement. Review of orders: She is still on cefepime 500 mg IV q. 12, and I think we can stop the cefepime. Cultures are negative. Urine culture negative. cc: Ernesto Griffin MD
[2016-10-31] MEDS ORDERED: VANCOMYCIN 1,200 MG in NS 250 ML IV SCH (01:00)
[2016-10-31] MEDS: HUMALOG SUBQ SCH ×3 (02:00→15:56)
[2016-10-31] MEDS: ZOFRAN IV PRN (06:30)
[2016-10-31 07:04] LABS: ALBUMIN 2.6 g/dL (3.5-5.0); CALCIUM 8.1 mg/dL (8.8-10.2); POTASSIUM 3.9 mmol/L (3.5-5.1)
[2016-10-31 07:24] LABS: HEMOGLOBIN 8.4 g/dL (12.0-16.0); MCHC 33.6 g/dL (33-37); MCV 89.3 FL (81-99); MPV 11.2 FL (7.4-10.4); RBC 2.8 XMIL (4.2-5.4)
[2016-10-31] MEDS: DUONEB (A & A) INH SCH ×2 (08:02→15:59)
[2016-10-31] MEDS: HEPARIN SUBQ SCH ×2 (09:27→20:34)
[2016-10-31] MEDS: NS 1,000 ML IV SCH ×2 (09:28→23:05)
[2016-10-31] MEDS ORDERED: MILK OF MAGNESIA PO PRN (13:07)
[2016-10-31] MEDS ORDERED: DULCOLAX PR PRN (13:08)
--- NOTE | 2016-10-31 16:38 | PROGRESS NOTE ---
DATE: 10/31/2016 SUBJECTIVE: Ms. Lam is having kind of a rough day. She was sitting up in a chair and she was tearful, she thinks she just overdid it yesterday. She said she probably does not need to sit in the chair as long today, but she is stronger, she is feeling better. She has had some bowel movements, but feels like maybe milk of magnesia might be helpful. OBJECTIVE: Vital signs: Today temperature 98.3 degrees, pulse 75, respirations 20, blood pressure 152/88. Lungs: Clear in all lung finley. Cardiovascular: Regular rhythm and rate without murmur or S3. Abdomen: Soft. Skin: Warm and dry. Urine output was 2200 mL. LABORATORIES: From today, white count 5770, hematocrit stable at 25, platelet count 56,000. Chemistry: sodium 137, potassium 3.9, chloride was 100, bicarb 22, BUN 40, creatinine 1.2. Phosphorus is down at 2. ASSESSMENT AND PLAN: 1. Acute kidney injury. Acute tubular necrosis which showed good improvement. Good urine output. Creatinine has come down nicely. 2. Continue to follow electrolytes. Her acid-base status looks good. Phosphorus is a little low. Encouraged her to get p.o. intake. 3. History of rectal cancer diagnosed 3 months ago. She has had a course of chemotherapy. We are going to let her have a little bit of milk of magnesia. Dulcolax suppository and see if she wants one. Looking back over her orders, her normal saline is going at 75 mL an hour,. cc: Ernesto Griffin MD
[2016-10-31] MEDS ORDERED: PRILOSEC PO ONE (16:53)
[2016-10-31] MEDS ORDERED: MAALOX PLUS LIQUID PO PRN (16:53)
[2016-10-31] MEDS: NORCO-5 PO PRN ×2 (17:24→23:06)
[2016-11-01] MEDS: HUMALOG SUBQ SCH ×5 (01:03→20:21)
[2016-11-01] MEDS: PRILOSEC PO SCH (06:45)
[2016-11-01] MEDS: DUONEB (A & A) INH SCH ×4 (07:31→23:00)
[2016-11-01 09:46] LABS: BASO% 0.5 % (0.0-0.8); HEMATOCRIT 23.3 % (37.0-47.0); HEMOGLOBIN 7.7 g/dL (12.0-16.0); IMM GRAN# 1.21 X1000 (0.0-0.04); IMM GRAN% 19.8 % (0.0-0.5); LYMPH# 0.32 X1000 (1.2-3.4); LYMPH% 5.2 % (20.5-51.1); MANUAL DIFF NEEDED? YES; MCH 29.8 PG (27-31); MCV 90.3 FL (81-99); MONO# 0.56 X1000 (0.11-0.59); MONO% 9.2 % (1.7-9.3); NEUT% 65.3 % (42.2-75.2); PLT 44 X1000 (130-400); RBC 2.58 XMIL (4.2-5.4)
[2016-11-01] MEDS: NS 1,000 ML IV SCH (09:47)
[2016-11-01] MEDS: HEPARIN SUBQ SCH ×2 (09:47→20:20)
[2016-11-01 10:14] LABS: BANDS 2 % (0-1); LYMPHS 4 % (21-51); MONO 10 % (1-9)
[2016-11-01 10:27] LABS: AGAP 14; ALBUMIN 2.7 g/dL (3.5-5.0); ALKALINE PHOSPHATASE 86 U/L (32-104); BUN 26 mg/dL (8-22); CALCIUM 7.4 mg/dL (8.8-10.2); CHLORIDE 103 mmol/L (98-107); COSMO 280; GOT 28 U/L (10-30); GPT 17 U/L (10-36); POTASSIUM 3.3 mmol/L (3.5-5.1); SODIUM 137 mmol/L (136-145); TCO2 20 mmol/L (25-35); TOTAL BILIRUBIN 0.28 mg/dL (0.20-1.00); TOTAL PROTEIN 5.3 g/dL (6.3-8.3)
--- NOTE | 2016-11-01 15:29 | PROGRESS NOTE ---
DATE: 11/01/2016 SUBJECTIVE: Ms. Lam eat a little bit of breakfast, did fine, was feeling better, and then this afternoon she just ate a couple bites of lunch and she threw up. She just had an episode of vomiting. Otherwise she states she has had a pretty good night and pretty good morning. OBJECTIVE: Vital signs: Temp 98.4 degrees, pulse 99, respirations 18, blood pressure 144/91. Lungs: Clear in all lung finley. Cardiovascular: Regular rhythm and rate without murmur or S3. Abdomen: Soft. Skin: Warm and dry. Intake and output: Urine output of over 3 L. LAB: Reviewed this morning. Hematocrit is stable at 23. Platelet count is still around 44,000. White count 6,100. Chemistries: Sodium 137, potassium 3.3, chloride 103, BUN 26, creatinine 0.8, albumin 2.7. Blood sugar is 88, 81, 124. ASSESSMENT: 1. Acute kidney injury which has resolved. Suspect she had early acute tubular necrosis. 2. Electrolytes have corrected. Acid-base status looks good. 3. Rectal cancer aware. 4. Recent episode of emesis. PLAN: I think she is getting close to being able to go home. Continue to supplement potassium. Review of her orders, I do not know if I see any change. cc: Ernesto Griffin MD
[2016-11-01] MEDS: NORCO-5 PO PRN (17:55)
[2016-11-01] MEDS: POTASSIUM CHLORIDE 20 MEQ/SWI 20 MEQ/100 ML IVPB IV SCH ×2 (18:04→20:14)
[2016-11-02] MEDS: HUMALOG SUBQ SCH ×4 (02:51→20:22)
[2016-11-02] MEDS: NS 1,000 ML IV SCH ×3 (05:29→20:30)
[2016-11-02] MEDS: PRILOSEC PO SCH (06:36)
[2016-11-02] MEDS: DUONEB (A & A) INH SCH ×3 (08:18→23:22)
[2016-11-02] MEDS: HEPARIN SUBQ SCH (08:41)
[2016-11-02] MEDS: NORCO-5 PO PRN ×2 (08:41→18:30)
[2016-11-02 09:11] LABS: BASO% 1.1 % (0.0-0.8); EOS# 0.01 X1000 (0.0-0.7); EOS% 0.1 % (0.0-10.0); HEMATOCRIT 28.4 % (37.0-47.0); HEMOGLOBIN 9.5 g/dL (12.0-16.0); IMM GRAN# 1.81 X1000 (0.0-0.04); IMM GRAN% 23.8 % (0.0-0.5); LYMPH# 0.32 X1000 (1.2-3.4); LYMPH% 4.2 % (20.5-51.1); MANUAL DIFF NEEDED? YES; MCH 29.6 PG (27-31); MCHC 33.5 g/dL (33-37); MCV 88.5 FL (81-99); MONO% 9.2 % (1.7-9.3); MPV 12.2 FL (7.4-10.4); NEUT% 61.6 % (42.2-75.2); PLT 40 X1000 (130-400); RBC 3.21 XMIL (4.2-5.4)
[2016-11-02 09:21] LABS: BANDS 18 % (0-1); LYMPHS 6 % (21-51); MONO 6 % (1-9)
[2016-11-02 10:21] LABS: AGAP 15; BUN 19 mg/dL (8-22); CALCIUM 7.7 mg/dL (8.8-10.2); CHLORIDE 103 mmol/L (98-107); COSMO 277; POTASSIUM 3.4 mmol/L (3.5-5.1); SODIUM 137 mmol/L (136-145); TCO2 19 mmol/L (25-35)
[2016-11-02] MEDS: POTASSIUM CHLORIDE 20 MEQ/SWI 20 MEQ/100 ML IVPB IV SCH ×2 (11:34→14:12)
--- NOTE | 2016-11-02 12:03 | PROGRESS NOTE ---
DATE: 11/02/2016 SUBJECTIVE: This patient states that she is feeling better. She is having rectal bleed, apparently is not that much but is bright red. She is followed by Dr. Todd secondary to rectal cancer and, as per the patient, she needs to get a new colonoscopy done. I will consult her [employer] boss, Dr. Livingston for evaluation. Also her appetite is low. I will start this patient on Megace. OBJECTIVE: Vital Signs: Temperature 98.4 degrees, pulse 91, respiratory rate 14, blood pressure 169/97, O2 saturation 97% on room air. HEENT: Head normocephalic. No trauma. PERRLA. Neck: Supple. No JVD. No masses. Central trachea. Chest: Clear to auscultation. No wheezing. No rales. Cardiovascular: RRR. No murmurs. Abdomen: Soft, nontender, nondistended. Protuberant. Extremities: 3+ lower extremity edema up to the thigh. Neurological: The patient is alert and oriented x3. No focal deficits. LABORATORY: WBC 7.6, hemoglobin 9.5, hematocrit 28.4, platelets 40,000. Sodium 137, potassium 3.4, chloride 103, bicarbonate 19. BUN 19, creatinine 0.6, glucose 112, calcium 7.7. ASSESSMENT AND PLAN: 1. Rectal cancer with lower GI bleed. Likely this bleed is coming from the rectal area, and this patient apparently needs to have a new colonoscopy done soon so I will consult the Gastroenterology Department to evaluate this patient. She was transfused recently, yesterday, and the hemoglobin improved from 7.7 to 9.5. 2. Normocytic anemia status post blood transfusion. Like I said, the hemoglobin improved from 7.7 to 9.5. We will continue to monitor. 3. Acute kidney injury. Resolved. 4. Hypokalemia. I will replace the potassium today. 5. Nausea and vomiting. Continue with omeprazole. 6. Nutritional status. This patient is on a diet, but she does not have appetite. I will start this patient on Megace. 7. Deep vein thrombosis prophylaxis. She has been on heparin 5000 units subcu q.12 hours which I am going to stop, because of the gastrointestinal bleed. 1. Physical deconditioning. This patient is already on physical therapy. cc: Garcia Osborn MD
[2016-11-02] MEDS: APRESOLINE PO SCH ×2 (14:55→20:22)
[2016-11-02] MEDS: MEGACE PO SCH (20:22)
[2016-11-03] MEDS: HUMALOG SUBQ SCH ×4 (05:59→20:34)
[2016-11-03] MEDS: APRESOLINE PO SCH ×3 (06:02→20:32)
[2016-11-03] MEDS: PRILOSEC PO SCH (06:03)
[2016-11-03 06:32] LABS: BASO% 0.7 % (0.0-0.8); EOS# 0.01 X1000 (0.0-0.7); EOS% 0.1 % (0.0-10.0); HEMATOCRIT 27.1 % (37.0-47.0); HEMOGLOBIN 9.1 g/dL (12.0-16.0); IMM GRAN% 20.6 % (0.0-0.5); LYMPH# 0.37 X1000 (1.2-3.4); LYMPH% 5.1 % (20.5-51.1); MANUAL DIFF NEEDED? YES; MCH 29.5 PG (27-31); MCHC 33.6 g/dL (33-37); MONO# 0.78 X1000 (0.11-0.59); MONO% 10.7 % (1.7-9.3); MPV 11.3 FL (7.4-10.4); NEUT% 62.8 % (42.2-75.2); RBC 3.08 XMIL (4.2-5.4)
[2016-11-03 06:37] LABS: PLT 37 X1000 (130-400)
[2016-11-03 06:42] LABS: AGAP 20; BUN 16 mg/dL (8-22); CALCIUM 7.4 mg/dL (8.8-10.2); CHLORIDE 103 mmol/L (98-107); COSMO 279; POTASSIUM 3.4 mmol/L (3.5-5.1); SODIUM 139 mmol/L (136-145); TCO2 16 mmol/L (25-35)
[2016-11-03 07:14] LABS: BANDS 14 % (0-1); LYMPHS 6 % (21-51); MONO 2 % (1-9)
[2016-11-03 07:16] LABS: LARGE PLATELETS 1+
[2016-11-03] MEDS ORDERED: KLOR-CON PO ONE (07:41)
[2016-11-03] MEDS: DUONEB (A & A) INH SCH ×3 (08:20→23:03)
[2016-11-03] MEDS: MEGACE PO SCH ×2 (09:19→20:32)
[2016-11-03] MEDS: CENTRUM SILVER PO SCH (09:19)
[2016-11-03] MEDS: NS 1,000 ML IV SCH (09:19)
[2016-11-03] MEDS: VASOTEC PO SCH (10:24)
[2016-11-03] MEDS: HYDROCHLOROTHIAZIDE PO SCH (10:24)
--- NOTE | 2016-11-03 12:54 | CONSULTATION ---
DATE OF CONSULTATION: 11/02/2016 REASON FOR CONSULTATION: Rectal bleeding with history of anal cancer. HISTORY OF PRESENT ILLNESS: This is a pleasant, 46-year-old lady, who was diagnosed to have anal cancer by me, who had just completed radiation treatment and chemotherapy with 5-FU and mitomycin which she finished about 2 weeks ago. For about a week, she has had nausea, vomiting, and diarrhea and was not feeling well and was started on Levaquin by Dr. Todd, however, the patient continues to have diarrhea and started having bleeding and feeling weak and presented with dehydration, anemia, and questionable sepsis. PAST MEDICAL HISTORY: 1. Anal cancer as above. 2. Hypertension. 3. Diabetes mellitus, type 2. PAST SURGICAL HISTORY: 1. Hysterectomy. 2. Cholecystectomy. FAMILY HISTORY: Positive for carcinoma of the cervix with the patient's mother. SOCIAL HISTORY: Smokes a pack of cigarettes a day. Does not use drugs or drink. MEDICATION ON ADMISSION: Levaquin and the rest of the medicines are being reviewed. ALLERGIES: None. REVIEW OF SYSTEMS: Fourteen-point review was obtained. It was negative other than HPI. PHYSICAL EXAMINATION: General: Examination revealed a pleasant lady, well nourished, appears rather weak but not in any acute distress. Vital Signs: Temperature 96.8 degrees, blood pressure 100/50, heart rate 90, respirations 21. O2 saturation 100% on 3 L. HEENT: Normocephalic, atraumatic. By the time I have seen her, the mucous membranes are moist, but she has conjunctival pallor present. No icterus. Neck: Supple. Trachea in the midline. Lungs: Clear. Heart: Normal first and second heart sounds. No gallop, murmur, or rub. Abdomen: Soft, not distended. Some vague diffuse tenderness. Bowel sounds are present. No rebound or guarding. Extremities: No clubbing, cyanosis, or edema. Skin: Normal. Neurological: Awake, alert. No focal deficit. LABORATORY DATA: She had 2 units of transfusion. Already, hematocrit up to 27. The white count is normal; however, platelets are low; they dropped further to 40,000 from 81,000 on admission. Creatinine is coming down. IMAGING: CAT scan of the abdomen showed fluid looped in the small bowels which is mild and no other abnormalities. IMPRESSION AND PLAN: 1. Anal carcinoma, status post chemo radiation with diarrhea. 2. Rectal bleeding could be from radiation proctitis. 3. Nausea and vomiting. 4. Sepsis, which 5. Acute kidney injury. The dehydration is being reverted back. 6. Anemia. Patient has received transfusion, and she is not bleeding much. PLAN: I think the patient is improving. Some of this may be related to recent chemo/radiation. We will at least do a flexible sigmoidoscopy without prep to see if there is any lesion in the rectum, itself, that needs to be cauterized. I talked with Dr. Allen who will be doing it tomorrow. cc: Mya Livingston MD
--- NOTE | 2016-11-03 13:04 | PROGRESS NOTE ---
DATE: 11/03/2016 SUBJECTIVE: The patient states that she is feeling about the same. She has not noticed any new rectal bleed. She is getting rectal enema and she is scheduled today for a colonoscopy/sigmoidoscopy. She is followed by Dr. Todd. She has a history of rectal cancer. OBJECTIVE: VITAL SIGNS: Temperature 98.6, pulse 104, respiratory rate 22, blood pressure 153/105, oxygen saturation 100% on room air. HEENT: Head normocephalic. No trauma. PERRLA. NECK: Supple. No JVD. No masses. Central trachea. CHEST: Clear to auscultation. No wheezing or rales. ABDOMEN: Soft, nontender, nondistended, protuberant. EXTREMITIES: Lower extremity edema 3+ up to the thigh. NEUROLOGIC: The patient is alert and oriented x3. No focal deficits. LABORATORY: WBC 7.2, hemoglobin 9.1, hematocrit 27.1, platelets 37,000. Sodium 139, potassium 3.4, chloride 103, bicarbonate 16, BUN 16, creatinine 0.6, glucose 102, calcium 7.4. ASSESSMENT AND PLAN: 1. Rectal cancer with lower gastrointestinal bleed. Likely, this bleed is coming from the rectal area. Gastroenterology is on board and they are planning to scope this patient today. Will continue to monitor the hemoglobin and hematocrit. 2. Normocytic anemia, status post blood transfusion. Continue to monitor the hemoglobin and hematocrit. 3. Acute kidney injury, resolved. 4. Hypertension. I put this patient back on her home medication, hydrochlorothiazide and enalapril, and also I added hydralazine for this patient. We will monitor the blood pressure closely. 5. Hypokalemia. I will replace the potassium today. 6. Thrombocytopenia. Will monitor. 7. Nausea and vomiting. Continue with nausea medication. 8. Nutritional status. This patient is n.p.o. today because she is going to be scoped today. 9. Deep vein thrombosis prophylaxis. Heparin has been held because of the procedure today. 10.Physical deconditioning. This patient is already in Physical Therapy. cc: Garcia Osborn MD
[2016-11-03] MEDS ORDERED: DIPRIVAN 1% ONE (15:08)
[2016-11-03] MEDS ORDERED: VERSED ONE (15:15)
[2016-11-03] MEDS ORDERED: LASIX IV ONE (16:47)
--- NOTE | 2016-11-03 17:00 | Diag Imaging Result Doc PS360 ---
EXAM: CHEST-1 VIEW HISTORY: SOB TECHNIQUE: Portable upright COMPARISON: 10/25/2016 FINDINGS: Heart is mildly enlarged. There are increased interstitial markings throughout the lungs. Questionable tiny pleural effusions. No consolidation. IMPRESSION: Increased interstitial markings believed to be pulmonary edema. Electronically signed by Barrett Sibley 11/03/2016 4:57 PM
--- NOTE | 2016-11-03 19:52 | OPERATIVE NOTE ---
PROCEDURE DATE: 11/03/2016 TITLE OF THE PROCEDURE: ILEO-COLONOSCOPY REQUESTING PHYSICIAN: Garcia Osborn MD PRIMARY CARE DOCTOR: Jose Varghese MD PRIMARY ONCOLOGIST: Benedict Todd MD PREPROCEDURE DIAGNOSES: 1. Rectal bleeding. 2. Anemia. 3. History of anal cancer, diagnosed in July [address] Livingston, status post chemotherapy with mitomycin and 5-FU, completed on 10/11/2016, radiation completed on 2016, admitted with shortness of breath and then developed constipation followed by diarrhea after giving laxatives and was noted to have rectal bleeding and required 3 units of blood transfusion. 4. Thrombocytopenia. 5. Chronic smoker. POSTOPERATIVE DIAGNOSES: 1. Stercoral ulcer at the anus, likely the cause of the patient's rectal bleeding. 2. Colitis in the left colon, starting at 50 cm and extending up to the rectum, patchy origin, likely secondary to radiation/chemotherapy. Normal colon otherwise. 3. Terminal ileitis, unclear etiology;? secondary to recent chemotherapy and radiation vs need to eval for possible crohn's disease. PROCEDURE PERFORMED: Ileocolonoscopy. PROVIDER: Kayden Allen MD ANESTHESIA: Monitored anesthesia care. ESTIMATED BLOOD LOSS: None. COMPLICATIONS: None. SPECIMENS: None- patient has low platelets of 37k. DESCRIPTION OF PROCEDURE: After informed consent from the patient, understanding the risks, benefits, indications, and alternatives, she was prepared for ileocolonoscopy. The patient was brought to the OR. The patient was turned into the left lateral position. Rectal exam was performed, which revealed no masses. The colonoscope was introduced through the anal orifice all the way to the terminal ileum. The terminal ileum showed evidence of erythema, friability, erosions, and ulcerations, suggesting terminal ileitis. We did not biopsy as the patient is thrombocytopenic. The right colon appeared normal. The left colon showed evidence of erythema and mucosal edema, and scattered patchy formed starting at 50 cm from the anal verge, extending all the way to the rectum. 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 I saw of large stercoral ulcer at the anal verge with a possible vessel. Again , we did not elect to treat it as the patient is thrombocytopenic and he was not currently bleeding. The air was aspirated as the scope was withdrawn. The patient tolerated the procedure and is currently being monitored in the OR in stable condition. RECOMMENDATIONS: 1. We will keep patient on a clear liquid diet for the next 3 days and advance as tolerated. 2. We will start the patient on Ensure Clear 1 can 4 times daily. 3. We will start on Iron C b.i.d. 4. We will keep a close eye on platelets and, if the patient starts bleeding, we will transfuse 1 unit of platelets and try to keep the platelets above 50,000. In this regard , we will seek the help off Dr. Todd. 5. The patient was counseled to quit smoking. 6. We will check [place] IBD panel to evaluate for Crohn disease. 7. We will keep an eye on the blood counts and type, cross, and transfuse to keep hematocrit more than 25%. 8. We will discontinue the Dulcolax suppository. 9. Further recommendations to follow pending above results. Discussed with patient and . cc: MD Jose Mehta MD Omar J. Sosa-Chirinos, MD Sammy Becdach, MD Traci C. McCormick, MD MTDD
[2016-11-03] MEDS: ICAR-C PO SCH (20:32)
[2016-11-04] MEDS: HUMALOG SUBQ SCH ×4 (03:13→22:14)
[2016-11-04] MEDS: APRESOLINE PO SCH ×3 (06:13→22:13)
[2016-11-04] MEDS: PRILOSEC PO SCH (06:13)
[2016-11-04 06:40] LABS: BASO% 0.6 % (0.0-0.8); EOS# 0.01 X1000 (0.0-0.7); EOS% 0.1 % (0.0-10.0); HEMATOCRIT 26.9 % (37.0-47.0); IMM GRAN# 1.09 X1000 (0.0-0.04); IMM GRAN% 15.5 % (0.0-0.5); LYMPH# 0.43 X1000 (1.2-3.4); LYMPH% 6.1 % (20.5-51.1); MANUAL DIFF NEEDED? YES; MCH 29.5 PG (27-31); MCHC 33.5 g/dL (33-37); MCV 88.2 FL (81-99); MONO# 0.69 X1000 (0.11-0.59); MONO% 9.8 % (1.7-9.3); MPV 11.2 FL (7.4-10.4); NEUT% 67.9 % (42.2-75.2); PLT 103 X1000 (130-400); RBC 3.05 XMIL (4.2-5.4)
[2016-11-04 06:54] LABS: INR 1.08; PROTIME 11.4 Seconds (9.2-11.7)
[2016-11-04 07:12] LABS: AGAP 18; BUN 11 mg/dL (8-22); CALCIUM 7.5 mg/dL (8.8-10.2); CHLORIDE 100 mmol/L (98-107); COSMO 275; POTASSIUM 2.8 mmol/L (3.5-5.1); SODIUM 138 mmol/L (136-145); TCO2 20 mmol/L (25-35)
[2016-11-04] MEDS: DUONEB (A & A) INH SCH ×3 (07:19→22:45)
[2016-11-04] MEDS: HYDROCHLOROTHIAZIDE PO SCH (08:32)
[2016-11-04] MEDS: MEGACE PO SCH ×2 (08:32→22:13)
[2016-11-04] MEDS: POTASSIUM CHLORIDE 40 MEQ/SWI 40 MEQ/100 ML IVPB IV SCH ×2 (08:32→12:54)
[2016-11-04] MEDS: ICAR-C PO SCH ×2 (08:32→22:13)
[2016-11-04] MEDS: CENTRUM SILVER PO SCH (08:32)
[2016-11-04] MEDS: VASOTEC PO SCH (08:32)
[2016-11-04 08:37] LABS: BANDS 2 % (0-1); LYMPHS 12 % (21-51); MONO 7 % (1-9); NRBC 3 % (0-0)
[2016-11-04] MEDS ORDERED: LASIX IV ONE (13:36)
--- NOTE | 2016-11-04 14:55 | PROGRESS NOTE ---
DATE: 11/04/2016 SUBJECTIVE: The patient currently is sitting in a chair. Her son is at the bedside. She denies any more rectal bleeding. She is tolerating diet well. She denied any fevers, chills. Denies any nausea or vomiting. Her platelet count improved after 1 unit of transfusion. Her platelet count is more than 100,000. OBJECTIVE: Vital Signs: Temperature 98.9 degrees, pulse of 106, respiratory 17, blood pressure 137/90, saturating 99% on 4 L of nasal cannula. General: Moderately nourished, sitting in chair in no distress. HEENT: No pallor. No icterus. Neck is supple. Abdomen is protuberant. Mild obesity. Bowel sounds are present. No guarding or rebound. Extremities: No cyanosis, clubbing. Neurologic: She is alert, awake, oriented. LABORATORY DATA: Hemoglobin and hematocrit is 9 and 26.9, white count of 7.0, platelet count of 103,000. MCV of 88.2. Her INR is 1.08. Sodium 130, potassium 2.8, chloride 100, bicarb 20, anion gap of 18. BUN of 11, creatinine 0.5, glucose of 101. Calcium is 7.5. IMPRESSION AND PLAN: 1. Anal cancer, status post radiation, finishing on 10/18/2016, and chemotherapy with mitomycin and 5-FU with Dr. Todd on 10/08/2016. Admitted with shortness of breath, which is improved, anemia, constipation followed by diarrhea and rectal bleeding. In this setting, we have done the colonoscopy yesterday which showed a large stercoral ulcer with a visible vessel and likely from impaction. In this regard I will keep the patient on liquid diet for the next 2 more days and then advance the diet as tolerated. 2. The patient has chronic constipation. In this regard, she will benefit from MiraLAX once or twice daily. 3. Colitis in the left side of the colon likely due to the radiation and chemotherapy. I will like to reevaluate in 6 weeks and also document healing of the ulcer. 4. Terminal ileitis with ulceration of the terminal ileum. We are unclear about the etiology. We have ordered a IBD panel. We will follow up on that. The patient will follow with me in the clinic in 6 weeks after discharge. 5. Anemia. We will start the patient on Iron C b.i.d. and multivitamin once daily. 6. Thrombocytopenia is improved with 1 unit of platelet transfusion. 7. Gastrointestinal prophylaxis with proton pump inhibitor. 8. Diabetes, on sliding-scale insulin. The above plan was discussed with the patient and the family. cc: MD Benedict Mehta MD Chad Mcelroy, MD Omar J. Sosa-Chirinos, MD
--- NOTE | 2016-11-04 14:58 | PROGRESS NOTE ---
DATE: 11/04/2016 SUBJECTIVE: This patient states that she is feeling better. No more rectal bleed. She has a colonoscopy done yesterday by Dr. Allen. Her platelet count yesterday was low and she was transfused. I had a conversation with Dr. Allen. We are going to keep this patient for 1 more day to monitor her platelet count and hemoglobin and hematocrit to be sure that this patient is not bleeding again. Hopefully tomorrow I will be able to discharge this patient. OBJECTIVE: Vital Signs: Temperature 98.9 degrees, pulse 106, respiratory rate 17, blood pressure 136/92, O2 saturation 99 on 4 L of nasal cannula. HEENT: Head normocephalic. No trauma. PERRLA. Neck: Supple. No JVD. No masses. Central trachea. Chest: Clear to auscultation. No wheezing. No rales. Abdomen: Soft, nontender, nondistended. Protuberant. Extremities: Two to 3+ lower extremity edema. Neurological: The patient is alert and oriented x3. No focal deficits. LABORATORY: WBC 7, hemoglobin 9, hematocrit 26.9, platelets 103,000. Sodium 128, potassium 2.8, chloride 100, bicarbonate 20, BUN 11, creatinine 0.5, glucose 101, calcium 7.5. ASSESSMENT AND PLAN: 1. Rectal cancer with lower GI bleed. This patient has been scoped yesterday. The postoperative diagnosis are stercoral ulcer at the anus, likely the cause of this patient's bleed, colitis in the left colon, terminal ileitis, all these likely secondary to chemotherapy and radiotherapy versus a new diagnosis of Crohn's disease. 2. Normocytic anemia status post blood transfusion. Continue to monitor the hemoglobin and hematocrit. 3. Thrombocytopenia status post transfusion. The platelets are better today. We will monitor this for 1 more day. 4. Acute kidney injury. Resolved. 5. Hypertension stable. Continue with the same management. 6. Hypokalemia. I will replace the potassium today again. 7. Fluid overload, all the IV fluids have been stopped and I gave her a 1 time dose of furosemide. 8. Nausea and vomiting. Continue with the same management. 9. Nutritional status. Continue with liquid diet for at least 3 days as per GI. 10. Deep vein thrombosis prophylaxis. I will put this patient back on anticoagulation. 11. Tobacco abuse. This patient has been highly advised against tobacco abuse. I will continue with daily cessation education. 12. Physical deconditioning. Continue with physical therapy. cc: Garcia Osborn MD
[2016-11-04] MEDS: HEPARIN SUBQ SCH (22:13)
[2016-11-05] MEDS: HUMALOG SUBQ SCH ×2 (02:41→09:11)
[2016-11-05 03:11] LABS: AGAP 18; BUN 8 mg/dL (8-22); CALCIUM 7.6 mg/dL (8.8-10.2); CHLORIDE 98 mmol/L (98-107); COSMO 273; SODIUM 137 mmol/L (136-145); TCO2 21 mmol/L (25-35)
[2016-11-05 03:13] LABS: POTASSIUM 2.5 mmol/L (3.5-5.1)
[2016-11-05 03:14] LABS: MAGNESIUM 0.5 mg/dL (1.5-2.7)
[2016-11-05] MEDS ORDERED: MAGNESIUM SULFATE 2 GM/S.W.I. 2 GM/50 ML IVPB IV ONE ×2 (04:14→12:00)
[2016-11-05] MEDS: APRESOLINE PO SCH ×3 (05:10→13:51)
[2016-11-05] MEDS ORDERED: NS 250 ML ONE (06:21)
[2016-11-05 06:31] LABS: BASO% 0.5 % (0.0-0.8); EOS# 0.01 X1000 (0.0-0.7); EOS% 0.2 % (0.0-10.0); HEMATOCRIT 25.1 % (37.0-47.0); HEMOGLOBIN 8.6 g/dL (12.0-16.0); IMM GRAN# 0.67 X1000 (0.0-0.04); LYMPH# 0.47 X1000 (1.2-3.4); LYMPH% 8.4 % (20.5-51.1); MCH 30.1 PG (27-31); MCHC 34.3 g/dL (33-37); MCV 87.8 FL (81-99); MONO# 0.65 X1000 (0.11-0.59); MONO% 11.6 % (1.7-9.3); MPV 11.1 FL (7.4-10.4); NEUT% 67.3 % (42.2-75.2); PLT 92 X1000 (130-400); RBC 2.86 XMIL (4.2-5.4)
[2016-11-05] MEDS: POTASSIUM CHLORIDE 20 MEQ/SWI 20 MEQ/100 ML IVPB IV SCH ×2 (06:44→09:06)
[2016-11-05] MEDS: PRILOSEC PO SCH (06:45)
[2016-11-05] MEDS: DUONEB (A & A) INH SCH (07:41)
[2016-11-05] MEDS: MEGACE PO SCH (09:07)
[2016-11-05] MEDS: HEPARIN SUBQ SCH (09:07)
[2016-11-05] MEDS: HYDROCHLOROTHIAZIDE PO SCH (09:07)
[2016-11-05] MEDS: CENTRUM SILVER PO SCH (09:08)
[2016-11-05] MEDS: ICAR-C PO SCH (09:08)
[2016-11-05] MEDS: VASOTEC PO SCH (09:08)
[2016-11-05] MEDS: SLOW-MAG PO SCH ×2 (09:08→09:23)
[2016-11-05 09:39] LABS: MANUAL DIFF NEEDED? YES
[2016-11-05 10:47] LABS: AGAP 9; BUN 7 mg/dL (8-22); CALCIUM 7.4 mg/dL (8.8-10.2); CHLORIDE 98 mmol/L (98-107); COSMO 273; SODIUM 136 mmol/L (136-145); TCO2 29 mmol/L (25-35)
[2016-11-05 11:10] LABS: MAGNESIUM 0.9 mg/dL (1.5-2.7)
[2016-11-05 13:34] LABS: LARGE PLATELETS 1+; LYMPHS 10 % (21-51); MONO 12 % (1-9); NRBC 1 % (0-0)
[2016-11-05 13:39] VITALS: BP 126/86
--- NOTE | 2016-11-05 18:41 | DISCHARGE SUMMARY ---
ADMISSION DATE: 10/25/2016 DISCHARGE DATE: 11/05/2016 CONSULTATIONS: 1. Kvng Grande MD with Nephrology. 2. Benedict Todd MD with Hematology/Oncology. 3. Mya Livingston MD with Gastroenterology. PERTINENT PROCEDURES: 1. Chest x-ray showed no acute disease. 2. Abdomen and pelvis CT showed nonspecific fluid-filled loops of small bowel with only minimal distention, a small amount of nonspecific free fluid layering the pelvis, subsegmental atelectasis and/or infiltrate at the lung base. 3. Echocardiogram showed an EF of 70%. 4. Colonoscopy performed by Dr. Allen showed stercoral ulcer at the anus likely the cause of the patient's rectal bleeding, colitis in the left colon starting at 50 cm and extending to the rectum, patchy origin likely secondary to radiation and chemotherapy, terminal ileitis of unclear etiology secondary to recent chemotherapy and radiation versus need to evaluate for possible Crohn's. DISCHARGE DIAGNOSES: 1. Rectal cancer with lower GI bleed. The patient has undergone a colonoscopy with Dr. Allen that showed stercoral ulcer at the anus likely the cause of the patient's bleed, colitis in the left colon, terminal ileitis likely secondary to chemotherapy and radiation versus new diagnosis of Crohn's disease. Dr. Allen would like to evaluate the ulcer in 6 weeks and document healing as well as follow up with an IBD panel. 2. Normocytic anemia status post transfusion. Hemoglobin and hematocrit stable. 3. Thrombocytopenia status post transfusion stable. 4. Acute kidney injury resolved. 5. Hypertension stable. 6. Hypokalemia resolved. 7. Fluid volume overload resolved. 8. Nausea, vomiting. Continue with antiemetics. 9. Tobacco abuse. Patient has been highly advised against using tobacco as well as daily smoking cessation. 10. Physical deconditioning. Patient has worked with physical therapy. She is being discharged home with home health. HISTORY OF PRESENT ILLNESS: Ms. Lam is a 46-year-old, female who carries a past medical history of type 2 diabetes, hypertension recently diagnosed 3 months ago with rectal cancer. She had been started on a course of chemotherapy and radiation. They reported for the last 2 weeks the patient had been having persistent nausea, vomiting and diarrhea. She normally gets nausea, vomiting and diarrhea two days after she gets chemotherapy but on this occasion it had been more severe and more protracted. Over the last 3 days she had been unable to keep anything down and 4 days after receiving her last chemotherapy she developed a fever. They called Dr. Todd who called in some levofloxacin. She took it for about a week, felt a little better and over the last few days her GI symptoms and overall clinical condition had gotten worse. They reported confusion and drowsiness for 2 days. She has been unable to stand or even set up due to her degree of weakness. Chest x-ray done in the ED showed no increased vascular markings or infiltrate. Her white count was 21. Her hemoglobin and hematocrit was , platelets were 112, sodium was 120, potassium was 5.3, bicarbonate of 3, anion gap 43, BUN 59, creatinine 7.1. Her CK was 556. Her troponin was 0.022. Her lactate was 11. D-dimer of 2.1. HOSPITAL COURSE: Initially she was admitted for sepsis. They were unsure if it was urinary or some type of intra-abdominal etiology. She was started on broad-spectrum antibiotics. They did check a urinalysis, a CT of the abdomen and pelvis, as well as stool cultures. They did do blood cultures. She was IV fluid resuscitated and started on bicarbonate drip given her metabolic acidosis. She also had an acute kidney injury secondary to her decreased intravascular volume from persistent GI losses as well as hyponatremia. Nephrology was consulted. Her abdomen and pelvis CT did show nonspecific fluid filled loops of small bowel with only minimal distention, a small amount of nonspecific free fluid layering the pelvis, subsegmental atelectasis and/or infiltrate at the lung bases. Echocardiogram was hyperdynamic with an EF of 70%. Nephrology agreed with her bicarbonate drip. They monitored her electrolytes closely. Patient's hemoglobin and hematocrit dropped to 7.3. She was given 2 units of blood by Hem/Onc. Electrolytes and acid base improved. She was able to come off her bicarbonate drip. She was making good urine output. Her creatinine came down. She was able to move to the floor on 10/29/2016 to begin physical therapy. She was tolerating a diet. Intermittent episodes of nausea and vomiting were controlled with antiemetics. She did report some rectal bleeding on 11/02 that was not very much but it was bright red. They consulted Dr. Livingston. Dr. Allen performed a colonoscopy that did find an stercoral ulcer at the anus likely the cause of the patient's rectal bleeding, colitis in the left colon likely secondary to radiation chemotherapy, terminal ileitis of unclear etiology secondary to recent chemotherapy and radiation versus need to evaluate for possible Crohn's disease. They did send an IBD panel. They placed the patient on a clear liquid diet for the next 3 days and then she was to advance as tolerated. They placed her on Icar-C. She was counseled daily to quit smoking. He would like to see her back in the office in 6 weeks to document the healing of her ulcer as well as go over her IBD panel. She is appropriate for discharge today. VITAL SIGNS ON DISCHARGE: Temperature 98.6 degrees, heart rate 100, respirations 17, blood pressure 119/80, O2 is 100% on room air. DISCHARGE DIET: Clear liquids for 1 more day and then advance as tolerated. DISCHARGE MEDICATIONS: 1. Clonazepam 0.5 mg p.o. b.i.d. 2. Colace 100 mg p.o. daily. 3. Enalapril/hydrochlorothiazide 10/25 mg 1 tab p.o. daily. 4. Apresoline 25 mg p.o. q.8 hours. 5. [place] 5/325, 1 each p.o. q.6 hours p.r.n. 6. Icar-C 1 each p.o. b.i.d. 7. Levocetirizine/Dihydrochloride 5 mg p.o. daily. 8. Maalox Plus 15-30 mL p.o. q.4 hours p.r.n. 9. Slow-Mag 64 mg p.o. daily. 10. Milk of Magnesia 30 mL p.o. daily. 11. Megace 40 mg p.o. b.i.d. 12. Meloxicam 7.5 mg p.o. daily. 13. Glucophage 500 mg p.o. b.i.d. 14. Robaxin 750 mg p.o. t.i.d. 15. Reglan 5 mg p.o. t.i.d. before meals. 16. Centrum Silver 1 each p.o. daily. 17. Prilosec 40 mg p.o. daily. 18. Zofran 8 mg p.o. t.i.d. 19. Potassium chloride 40 mEq p.o. daily. 20. Zocor 80 mg p.o. daily. DISPOSITION: Ms. Lam is being discharged home with home health. FOLLOWUP: 1. She will follow up with her primary care physician, Dr. Jose aVrghese, Dr. Todd in 1 week as well as Dr. Allen in 5-6 weeks for followup. 2. She can return to the ED for any worsening of symptoms. DISCHARGE INSTRUCTIONS: She has been advised against daily smoking cessation as well as the means to quit. DISCHARGE TIME: Greater than 35 minutes. Dictated by EMERSON Adair for Garcia Osborn MD cc: MD Jose Hess MD
[2016-11-06] MEDS ORDERED: LASIX PO SCH (09:00)
[2016-11-06] MEDS ORDERED: KLOR-CON PO SCH (09:00)
[2016-11-06] MEDS ORDERED: LASIX IV SCH (09:00)
--- NOTE | 2017-01-05 21:34 | ED EKG INTERP ---
This chart was entered by Mary Nolan Scribe, acting as scribe for Christophe Mayorga MD. EKG Interpretation - EKG Time of EKG reading by physician:: 18:25 EKG Read and Signed by:: Christophe Mayorga EKG Interpretation (*Must complete 3 of following elements*): Abnormal Rate: 113 Rhythm: Sinus Tachycardia QRS: other (low voltage QRS) Comments: Borderline ECG Attestation - Physician/ LACEY Attestation Patient care was provided by Advanced Practice Provider:: No Advanced Practice Provider:: Genaro Basilio The physician spent face to face time with patient:: No Advanced Practice Provider documentation review:: Supervising physician onsite and consulted in the evaluation and care of this patient. The physician did not have a face to face encounter with the patient. This chart was documented by the indicated scribe, (Mary Nolan Scribe) and accurately reflects the services I performed and decisions made by me, Christophe Mayorga MD, as attested by the provider's signature.
== END 2016-11-05 15:28 | disposition home health service (06) ==
LOC: ED 17:07 → SUATTDRO 17:08 → ICU 20:46 → 3N 10-29 10:17
PROVIDERS: ATTEND Internal Medicine